=== PATIENT | female | born 1950 | race Caucasian/White ===

== ENCOUNTER → 2016-12-27 | Outpatient (CLI) | payer OTHER ==
[~2016-12-27] MED LIST: ATEN25TA PO; BUME1TAB21 PO; CEPH-368 PO; CHOL10003 PO; CRAN1TAB6 PO; CRANBERRY PO; CYANOCOBALAMIN PO; CYCL5TAB PO; HYDR-3138 PO; HYDR-3240 PO; HYDR-3307 PO; IBUP200T5 PO; INSU100C5 SC; LEVO100T5 PO; LISI-167 PO; MAGN400O4 PO; PRAV40TA2 PO; PRED1DRO EACHEYE; SERT100T5 PO; TIZA2CAP2 PO; TRAM50TA2 PO; VIT1TABL32 PO; VITA150T PO; erythromycin 0.5% EACHEYE
== END | disposition home or self-care (01) ==
LOC: CFH 10:33
DX: Z12.31 Encounter for screening mammogram for malignant neoplasm of breast (principal)
CPT/HCPCS: G0202